=== PATIENT | female | born 1995 | race Caucasian/White ===

== ENCOUNTER → 2019-12-23 13:00 | Outpatient (CLI) | payer OTHER, SELFPAY ==
[2019-12-23 13:58] LABS: COVID19 -Nasal RAPID Negative (Negative)
== END ==
PROVIDERS: Visit Provider Nurse Practitioner
DX: R11.0 Nausea (principal); R11.10 Vomiting, unspecified; R52 Pain, unspecified; R68.83 Chills (without fever)
CPT/HCPCS: 87635